=== PATIENT | male | born 1955 | race Caucasian/White ===

== ENCOUNTER 2016-11-08 14:23 | Emergency (ER) | payer BC ==
[2016-11-08 14:30] VITALS: BP 145/85; PULSE 80; TEMP 98; BMI 24.3
[2016-11-08] MEDS ORDERED: IBUPROFEN 400 MG TABLET (FP) PO ONE ×2 (15:15→15:16)
--- NOTE | 2016-11-08 15:37 | PDOC ---
History of Present Illness - General Chief Complaint: Cold Symptoms Stated Complaint: ABD PAIN, FLU SYMPTOMS Time Seen by Provider: 11/08/16 15:09 History Source: Patient Exam Limitations: No Limitations - History of Present Illness Initial Comments: 11/08/16 15:35 Patient came to emergency department for evaluation of nonproductive cough, cold , generalized body aches earache and sore throat pain. States was with his coworker who became ill 2 days ago with same symptoms. Is uncertain as to his diagnosis. Patient did not have flu shot. Has taken NyQuil and Tylenol with minimal relief 11/08/16 15:37 Timing/Duration: reports: just prior to arrival Severity: reports: mild, moderate Associated Symptoms: reports: denies symptoms, chest pain/soreness, cough, fever /chills, headache, muscle aches, nasal congestion, nasal drainage, sore throat Past History - Travel Traveled outside of the country in the last 30 days: No Close contact w/someone who was outside of country & ill: No - Past Medical History Allergies/Adverse Reactions: Allergies Allergy/AdvReac Type Severity Reaction Status Date / Time No Known Allergies Allergy Verified 11/08/16 14:27 Home Medications: Ambulatory Orders Oseltamivir Phosphate [Tamiflu -] 75 mg PO BID #10 capsule 11/08/16 Other medical history: DENIES. - Psycho/Social/Smoking Cessation Hx Anxiety: No Suicidal Ideation: No Smoking History: Never smoked Hx Alcohol Use: No Drug/Substance Use Hx: No Substance Use Type: None Review of Systems - Review of Systems Able to Perform ROS?: Yes Is the patient limited French proficient: Yes Constitutional: Yes: Symptoms Reported, See HPI, Fever, Malaise HEENTM: Yes: See HPI Respiratory: Yes: Symptoms reported, See HPI, Cough (nonproductive), Wheezing ABD/GI: Yes: Symptoms Reported Integumentary: Yes: Symptoms Reported All Other Systems: Reviewed and Negative *Physical Exam - Vital Signs Last Vital Signs Temp Pulse Resp BP Pulse Ox 98.0 F 80 18 145/85 99 11/08/16 14:27 11/08/16 14:27 11/08/16 14:27 11/08/16 14:27 11/08/16 14:27 - Physical Exam General Appearance: Yes: Nourished, Appropriately Dressed, Apparent Distress, Mild Distress, Moderate Distress HEENT: positive: KYLE, TMs Normal (congested but landmarks easily visualized), Pharyngeal Erythema (no exudate ), Nasal Congestion, Rhinorrhea. negative: Normal ENT Inspection, Pharynx Normal Neck: positive: Supple, Lymphadenopathy (R), Lymphadenopathy (L) Respiratory/Chest: positive: Lungs Clear (course with good aeration) Cardiovascular: positive: Regular Rate Gastrointestinal/Abdominal: positive: Normal Bowel Sounds, Soft. 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 Will treat with Tamiflu *DC/Admit/Observation/Transfer Diagnosis at time of Disposition: Influenza - Discharge Dispostion Disposition: HOME Condition at time of disposition: Stable Admit: No - Patient Instructions Printed Discharge Instructions: DI for Influenza -- Adult Additional Instructions: Rest, drink lots of fluids: Teas, water, soups, Pedialyte Saltwater gargles Steamy showers/seem to face break up mucus Old-fashioned treatments help! Avoid contact with others until fevers and cough resolved as this is very contagious Lots of handwashing and good hygiene Continue stda-fum-wdcekae medications for symptomatic relief Tylenol or Motrin for fever and pain Take all of Tamiflu as directed: 1 tab every 12 hours for 5 days Followup with private physician in one to 2 days as needed or if worsening Return to emergency department for worsened symptoms, fevers, dehydration Influenza takes between 5 and 7 days for resolution To not participate in any activity, work, or school until fevers and cough are gone for at least one day - Post Discharge Activity Work/School Note: Back to Work
--- NOTE | 2016-11-10 16:20 | EKG ---
Test Reason : Blood Pressure : / mmHG Vent. Rate : 075 BPM Atrial Rate : 075 BPM P-R Int : 160 ms QRS Dur : 088 ms QT Int : 372 ms P-R-T Axes : 038 -36 039 degrees QTc Int : 415 ms NORMAL SINUS RHYTHM LEFT AXIS DEVIATION POSSIBLE ANTERIOR INFARCT , AGE UNDETERMINED ABNORMAL ECG NO PREVIOUS ECGS AVAILABLE Confirmed by OLGA BURNS MD ([id number]) on 11/10/2016 4:20:05 PM Referred By: SAURAV Confirmed By:OLGA BURNS MD
== END 2016-11-08 15:41 | disposition home or self-care (01) ==
LOC: JERFT 14:23
DX: J11.1 Influenza due to unidentified influenza virus with other respiratory manifestations (principal)
CPT/HCPCS: 93005; 93010; 99281-25

== ENCOUNTER 2017-06-16 08:46 | Emergency (ER) | payer OTHER, BC ==
[2017-06-16 08:59] VITALS: BP 150/92; PULSE 73; TEMP 73; BMI 24.4
[2017-06-16] MEDS ORDERED: KETOROLAC TROMETHAMINE 30 MG/1 ML VIAL IM ONE (09:27)
[2017-06-16] MEDS ORDERED: KETOROLAC TROMETHAMINE 30 MG/1 ML VIAL ONE (09:29)
--- NOTE | 2017-06-16 09:29 | PDOC ---
History of Present Illness - General Chief Complaint: Pain, Acute Stated Complaint: INJURY Time Seen by Provider: 06/16/17 09:23 History Source: Patient Exam Limitations: No Limitations - History of Present Illness Initial Comments: 06/16/17 09:29 61 ur male with pain to left knee after twisting it running down a slope at work yesterday. pt did not fall. pt took motrin yesterday. Pt has chronic arthritis to the knee. Past History - Past Medical History Allergies/Adverse Reactions: Allergies Allergy/AdvReac Type Severity Reaction Status Date / Time No Known Allergies Allergy Verified 06/16/17 08:59 Home Medications: Ambulatory Orders Naproxen [Naprosyn -] 500 mg PO BID PRN #14 tablet 06/16/17 Other medical history: Arthritis - Psycho/Social/Smoking Cessation Hx Anxiety: No Suicidal Ideation: No Smoking History: Never smoked Information on smoking cessation initiated: No Hx Alcohol Use: No Drug/Substance Use Hx: No Substance Use Type: None *Physical Exam - Vital Signs Last Vital Signs Temp Pulse Resp BP Pulse Ox 73 F L 73 17 150/92 99 06/16/17 08:57 06/16/17 08:57 06/16/17 08:57 06/16/17 08:57 06/16/17 08:57 - Physical Exam General Appearance: Yes: Nourished, Appropriately Dressed HEENT: positive: EOMI, KYLE Musculoskeletal: positive: Normal Inspection Extremity: positive: Normal Capillary Refill, Normal Inspection, Normal Range of Motion, Tender (medially left knee, no crepitus no swelling, FROM of the knee no patella tenderness ) Integumentary: positive: Normal Color, Dry, Warm Neurologic: positive: Fully Oriented, Alert, Normal Mood/Affect, Normal Response , Motor Strength 5/5 Procedures - Splinting Pre-Made Type: knee immobilizer ED Treatment Course - RADIOLOGY Radiology Studies Ordered: Category Date Time Status KNEE 3 POS-LEFT [RAD] Stat Radiology 06/16/17 09:27 Ordered Medical Decision Making - Medical Decision Making 06/16/17 10:02 cc: knee injury yesterday twisted the knee while running down a hill at work pt is ambualtory with a slight limp will get xray no swelling or deformity 06/16/17 10:[address] knee immobilizer dc home with strict follow up with ortho 06/16/17 12:50 temp is 98.3 F oraly *DC/Admit/Observation/Transfer Diagnosis at time of Disposition: Knee sprain Qualifiers: Encounter type: initial encounter Involved ligament of knee: unspecified ligament Laterality: left Qualified Code(s): S83.92XA - Sprain of unspecified site of left knee, initial encounter - Discharge Dispostion Disposition: HOME Condition at time of disposition: Good - Prescriptions Prescriptions: Naproxen [Naprosyn -] 500 mg PO BID PRN #14 tablet PRN Reason: Pain - Referrals Referrals: Edward Ulloa [Primary Care Provider] - Luke Seth MD [Staff Physician] - - Patient Instructions Additional Instructions: please follow with the orthopedist this week use the splint while awake remove to sleep and bathe apply warm compresses to area of pain every 3hrs for 15 minutes take naprosyn as needed for pain - Post Discharge Activity Work/School Note: Back to Work
== END 2017-06-16 10:45 | disposition home or self-care (01) ==
LOC: JERFT 08:46
PROC: 2W3RXYZ Immobilization of Left Lower Leg using Other Device (ICD-10-PCS; principal; 2017-06-16)
DX: S83.8X2A Sprain of other specified parts of left knee, initial encounter (principal); X50.1XXA Overexertion from prolonged static or awkward postures, initial encounter; Y93.02 Activity, running; Y92.828 Other wilderness area as the place of occurrence of the external cause; Y99.0 Civilian activity done for income or pay
CPT/HCPCS: 73562-TC-LT; 99281-25

== ENCOUNTER 2017-08-27 10:39 | Day surgery (SDC) | payer OTHER ==
[2017-08-24 14:45] VITALS: BMI 25.0
[2017-08-27] MEDS ORDERED: MIDAZOLAM HCL 2 MG/2 ML SINGLE DOSE VIAL ONE (12:36)
[2017-08-27] MEDS ORDERED: PROPOFOL 20 ML ONE ×2 (12:52)
[2017-08-27] MEDS ORDERED: SUCCINYLCHOLINE CHLORIDE 200 MG/10 ML VIAL ONE (12:53)
[2017-08-27] MEDS ORDERED: LIDOCAINE HCL 2% 100 MG/5 ML DISP.SYRIN ONE (12:53)
[2017-08-27] MEDS ORDERED: ceFAZolin SODIUM 1 GM VIAL ONE (13:07)
[2017-08-27] MEDS ORDERED: DEXAMETHASONE SOD PHOSPHATE 4 MG/1 ML VIAL ONE (13:09)
[2017-08-27] MEDS ORDERED: ONDANSETRON 4 MG/2 ML VIAL ONE ×2 (13:09→14:31)
[2017-08-27] MEDS ORDERED: KETOROLAC TROMETHAMINE 30 MG/1 ML VIAL ONE (13:10)
[2017-08-27] MEDS ORDERED: ONDANSETRON 4 MG/2 ML VIAL IVPUSH PRN (13:53)
[2017-08-27] MEDS ORDERED: oxyCODONE HCL 5 MG TABLET PO PRN (13:53)
[2017-08-27] MEDS ORDERED: LACTATED RINGERS SOLUTION 1,000 ML IV SCH (14:00)
--- NOTE | 2017-08-27 15:40 | OP ---
DATE OF OPERATION: 08/27/2017 PREOPERATIVE DIAGNOSIS: Left knee medial meniscal tear. POSTOPERATIVE DIAGNOSES: Left knee medial meniscal tear, lateral meniscal tear. PROCEDURES: Left knee arthroscopy, with partial medial, partial lateral meniscectomy. SURGEON: Mark Mars MD ANESTHESIA: General. POSTOPERATIVE CONDITION: Stable. COMPLICATIONS: None. BLOOD LOSS: Minimal. INDICATIONS: This is a pleasant gentleman who has been suffering from medial knee pain. MRI demonstrated a medial meniscal tear. Treatment options, including nonoperative as well as operative management, were discussed. Operative risks reviewed in detail, including bleeding, infection, neurovascular injury, need for further surgery, postoperative pain and stiffness, progression of osteoarthritis. We discussed the medical risks, such as heart attack, stroke, DVT, PE, and . I addressed all the patient's questions. He verbalized understanding and elected to proceed. PROCEDURE: The patient was brought to the operating room, where general anesthesia was administered. The left lower extremity was then prepped and draped in the usual sterile fashion. Preoperative dose of antibiotics was given and the usual timeout procedure was performed. At this point, the portals were marked out on the knee. They were injected subcutaneously with 0.25% Marcaine. An 11-blade was now used to establish a lateral portal. The arthroscope was now passed into the knee. Examination of the patellofemoral joint demonstrated some superficial cartilage wear about the patellar and trochlear surfaces. The scope was now passed into the notch. Here, the ACL was visualized to be intact. Passing the arthroscope into the medial compartment, a medial portal was now established. Examination of the medial compartment demonstrated a complex tear of the posterior horn and body of the medial meniscus. 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 The meniscus was now debrided utilizing a combination of meniscal biter and meniscal shaver. The meniscus was debrided down to a stable base. The arthroscope was then passed into the lateral compartment. Here, in the body, there was a radial tear extending through the junction of the anterior-third and body. Again, utilizing meniscal biters and a shaver, this was debrided down to a stable base. At this point, the excess fluid was withdrawn from the knee. The portals were sutured using 3-0 nylon. The tourniquet was let down after 22 minutes. The patient was extubated and transferred to the recovery room in stable condition. Krysten PARKER/[id number]
[2017-08-27 15:50] VITALS: BP 118/71; PULSE 58; TEMP 97.9
== END 2017-08-27 15:50 | disposition home or self-care (01) ==
LOC: FASU 10:39
PROVIDERS: ATTEND Orthopaedic Surgery Sports Medicine
PROC: 0SBD4ZZ Excision of Left Knee Joint, Percutaneous Endoscopic Approach (ICD-10-PCS; 2017-08-27)
PROC: 0SBD4ZZ Excision of Left Knee Joint, Percutaneous Endoscopic Approach (ICD-10-PCS; principal; 2017-08-27 13:19)
DX: S83.242A Other tear of medial meniscus, current injury, left knee, initial encounter (principal); S83.282A Other tear of lateral meniscus, current injury, left knee, initial encounter; X58.XXXA Exposure to other specified factors, initial encounter; Y93.9 Activity, unspecified; Y92.9 Unspecified place or not applicable
CPT/HCPCS: 94760